=== PATIENT | male | born 1960 | race Caucasian/White ===

== ENCOUNTER 2021-03-11 10:12 | Emergency (ER) | payer OTHER, SELFPAY ==
--- NOTE | ~2021-03-11 | XR_ITS ---
EXAMINATION: XR CHEST CLINICAL INFORMATION: Chest pain COMPARISON: None TECHNIQUE: Frontal view of the chest was obtained. FINDINGS: The cardiomediastinal silhouette is normal. Low lung volumes. Mild bronchial wall thickening. No dense consolidation, pleural effusion or pneumothorax. XR/XR chest 1V IMPRESSION: Mild bronchial wall thickening suggesting small airways disease. No consolidation.
--- NOTE | 2021-03-11 10:16 | ECG_ITS ---
Test Reason : chest pain Blood Pressure : / mmHG Vent. Rate : 069 BPM Atrial Rate : 069 BPM P-R Int : 150 ms QRS Dur : 120 ms QT Int : 416 ms P-R-T Axes : 051 060 017 degrees QTc Int : 445 ms Normal sinus rhythm Possible Left atrial enlargement Right bundle branch block ST elevation consider anterior injury or acute infarct ACUTE [place] / STEMI Abnormal ECG No previous ECGs available Referred By: Generic ED Physician Electronically Signed By:
[2021-03-11 10:42] VITALS: BP 128/78; PULSE 78; RESP 16; TEMP 36.1; O2SAT 99; BMI 26.2
--- NOTE | 2021-03-11 10:43 | ED.CHESTPAIN ---
HPI - Chest Pain General Chief Complaint: Chest Pain Stated Complaint: chest pain Time Seen by Provider: 03/11/21 10:40 Source: patient Mode of arrival: ambulatory Limitations: no limitations History of Present Illness HPI narrative: 60-year-old male was rushed to room 22 for possible STEMI. 60-year-old male was exercising this morning at 06:20 when he started to have mid chest pain/epigastric pain while exercising, describes the pain as heaviness on his chest, lasted for about 15-20 seconds, the pain disappeared, patient called PCP who advised him to come to the emergency department for further evaluation patient has no pain now, initial EKG showed artifact that was picked by the machine as an acute MS. Repeat EKG after shaving patient's chest hair shows no STEMI. Patient decline lower extremity swelling or tenderness, patient had a history of PE 3 years ago that required Eliquis treatment patient is of Eliquis now. Patient exercise regularly sometimes gets epigastric pain or indigestion with exertion. Related Data Allergies Allergy/AdvReac Type Severity Reaction Status Date / Time No Known Allergies Allergy Verified 03/11/21 10:41 Review of Systems Review of Systems: All other systems are reviewed and are negative Constitutional: Reports as per HPI and Reports no additional constitutional complaints Eyes: Reports as per HPI and Reports no additional eye complaints Reports system reviewed and no additional complaints, except as documented Cardiovascular: Reports as per HPI and Reports no additional cardiovascular complaints Respiratory: Reports as per HPI and Reports no additional respiratory complaints Gastrointestinal: Reports as per HPI and Reports no additional gastrointestinal complaints Genitourinary: Reports no additional female genitourinary complaints Musculoskeletal: Reports no additional musculoskeletal complaints Skin/Breast: Reports system reviewed and no additional complaints, except as docu Psychiatric: Reports no additional psychiatric complaints Endocrine: Reports no additional endocrine complaints Hematologic/Lymphatic: Reports no additional hematologic/lymphatic complaints Allergic/Immunologic: Reports no additional allergic/immunologic complaints Reports system reviewed and no additional complaints, except as documented and Reports Abnormal speech present [facility] Past Medical History Medical History High cholesterol Pulmonary emboli Surgical History History of ankle surgery Social History Social History Advance Directives: No Advance Directives Information Provided: No Physical Exam Vital Signs: Vital Signs: Last Vital Signs Temp 97.7 F 03/11/21 12:00 Pulse 63 03/11/21 12:00 Resp 18 03/11/21 12:00 BP 118/88 03/11/21 12:00 Pulse Ox 99 03/11/21 12:00 BMI result Body Mass Index 26.2 Vital signs have been reviewed as appeared to be correct. Blood pressure normal. Heart rate normal. Respiration rate normal. Temperature normal. Oxygen saturation normal. Appearance: Alert. Oriented X3. No acute distress. Head: Normal external exam. Normocephalic. Atraumatic. No Murray signs noted. No raccoon eyes noted Eyes: PERRLA. EOMI. Conjunctiva and sclera normal. Eyelids normal. ENT: TM's Normal. Pharynx normal. Uvula midline. Moist mucous membranes. No trismus noted. No drooling noted. No muffled voice noted. Neck: Normal inspection. Neck supple. FROM. No adenopathy. Thyroid Normal. No meningeal signs. No neck mass noted. CVS: Normal heart rate and rhythm. Heart sound normal. No murmurs noted. Pulses normal throughout. Respiratory: No respiratory distress. Painless inspiration. Breath sounds normal. No wheezes/rales/rhonchi noted. Chest nontender. No accessory muscle usage noted or decreased air movement noted. Abdomen: Soft and nontender. Bowel sounds normal in all 4 quadrants. No distention noted. No organomegaly noted. No visible injury noted. Back: No CVA tenderness. Full range of motion noted. Skin: Skin warm and dry. Normal skin color. Normal skin turgor. No rashes/lesions/lacerations noted. Extremities: No lower extremity edema. Extremities exhibit normal range of motion. Extremities nontender. Neuro: Oriented X 3. Cranial nerve exam: II-XII are grossly intact No motor deficit. No sensory deficit. Reflexes normal. Course Course Course Narrative: Assessment and plan. 60-year-old male came in for evaluation after exertional chest pain while he was exercising this morning, artifact EKG was read by the machine as STEMI, repeating EKG showed no STEMI patient remained chest pain-free, patient had a D-dimer negative with no lower extremity swelling or pain and no risk for PE or DVT. Negative troponin with 3 hours apart. MDM - Chest Pain Medical Records Data Attestation: I reviewed the patient's medical records. Lab Data Attestation: I reviewed the patient's lab results. Result diagrams: 03/11/21 10:49 03/11/21 10:49 Labs: Lab Results 03/11/21 03/11/21 03/11/21 Range/Units 10:49 10:49 10:49 WBC 8.0 (4.8-10.8) X10*3/uL RBC 5.46 (4.60-5.80) X10*6/uL Hgb 16.3 (14.0-18.0) g/dl Hct 48.4 (42.0-52.0) % MCV 88.6 (80.0-98.0) fL MCH 29.9 (27.0-33.0) pg MCHC 33.7 (31.0-36.0) g/dl RDW 12.8 (11.0-16.0) % Plt Count 209 (160-400) X10*3/uL MPV 10.8 (9.4-12.4) fL Immature Gran % (Auto) 0.3 (0.0-0.4) % Neut % (Auto) 49.9 (45-73) % Lymph % (Auto) 36.5 (20-40) % [place] % (Auto) 11.1 H (2-11) % Eos % (Auto) 1.8 (0-4) % Baso % (Auto) 0.4 (0-2) % Lymph # (Auto) 2.9 (1.2-4.9) X10*3/uL [place] # (Auto) 0.9 (0.1-1.2) X10*3/uL Eos # (Auto) 0.1 (0.0-0.4) X10*3/uL Baso # (Auto) 0.0 (0.0-0.2) X10*3/uL Abs Immat Gran (auto) 0.02 (0.00-0.03) X10*3/uL Absolute Neuts (auto) 4.0 (2.0-8.3) x10*3/uL Absolute Nucleated RBC 0.000 (0.0-0.012) X10*3/uL Nucleated RBC % (auto) 0.0 (0.0-0.2) /100WBC D-Dimer High Sensitivty < 150 NG/ML Sodium 138 (135-145) mmol/L Potassium 4.5 (3.3-5.1) mmol/L Chloride 102 (96-108) mmol/L Carbon Dioxide 29 (22-29) mmol/L Anion Gap 12 (12-20) BUN 16 (9-16) mg/dL Creatinine 0.93 (0.5-1.4) mg/dL Estim Creat Clear Calc 100.9 Estimated GFR > 60 Random Glucose 111 (60-115) mg/dL Calcium 10.2 (8.4-10.2) mg/dL Total Bilirubin 0.9 (0.0-1.0) mg/dL Direct Bilirubin 0.3 (0.0-0.5) mg/dL AST 30 (5-37) U/L ALT 26 (0-40) U/L Alkaline Phosphatase 59 (39-117) U/L Troponin I High Sens (<3.5-35.0) ng/L B-Natriuretic Peptide (<100) pg/mL Total Protein 7.7 (6.5-8.0) g/dL Albumin 4.5 (3.5-5.0) g/dL Lipase 30 (8-78) U/L 03/11/21 03/11/21 Range/Units 10:49 14:13 WBC (4.8-10.8) X10*3/uL RBC (4.60-5.80) X10*6/uL Hgb (14.0-18.0) g/dl Hct (42.0-52.0) % MCV (80.0-98.0) fL MCH (27.0-33.0) pg MCHC (31.0-36.0) g/dl RDW (11.0-16.0) % Plt Count (160-400) X10*3/uL MPV (9.4-12.4) fL Immature Gran % (Auto) (0.0-0.4) % Neut % (Auto) (45-73) % Lymph % (Auto) (20-40) % [place] % (Auto) (2-11) % Eos % (Auto) (0-4) % Baso % (Auto) (0-2) % Lymph # (Auto) (1.2-4.9) X10*3/uL [place] # (Auto) (0.1-1.2) X10*3/uL Eos # (Auto) (0.0-0.4) X10*3/uL Baso # (Auto) (0.0-0.2) X10*3/uL Abs Immat Gran (auto) (0.00-0.03) X10*3/uL Absolute Neuts (auto) (2.0-8.3) x10*3/uL Absolute Nucleated RBC (0.0-0.012) X10*3/uL Nucleated RBC % (auto) (0.0-0.2) /100WBC D-Dimer High Sensitivty NG/ML Sodium (135-145) mmol/L Potassium (3.3-5.1) mmol/L Chloride (96-108) mmol/L Carbon Dioxide (22-29) mmol/L Anion Gap (12-20) BUN (9-16) mg/dL Creatinine (0.5-1.4) mg/dL Estim Creat Clear Calc Estimated GFR Random Glucose (60-115) mg/dL Calcium (8.4-10.2) mg/dL Total Bilirubin (0.0-1.0) mg/dL Direct Bilirubin (0.0-0.5) mg/dL AST (5-37) U/L ALT (0-40) U/L Alkaline Phosphatase (39-117) U/L Troponin I High Sens 3.9 4.4 (<3.5-35.0) ng/L B-Natriuretic Peptide 16 (<100) pg/mL Total Protein (6.5-8.0) g/dL Albumin (3.5-5.0) g/dL Lipase (8-78) U/L Imaging Data Chest x-ray: Attestation: I personally reviewed and interpreted this imaging study as follows: Radiologist's impression: Mild bronchial wall thickening suggesting small airways disease. No consolidation. ECG Data ECG #1: Attestation: I personally reviewed and interpreted this ECG as follows: Interpretation: Normal sinus rhythm at 63 beats per minutes, right bundle branch block, normal intervals, no ST-T changes. Discharge Plan Discharge Clinical Impression: Chest pain Patient Disposition: Home, Self-Care Instructions: Chest Pain (ED) Referrals: Mohsen Peguero MD [Physician] - 2 days Winston Mandujano MD [Primary Care Provider] - 2 days
[2021-03-11 10:53] LABS: MANUAL DIFF FLAG NO
[2021-03-11 10:54] LABS: Basophils Percent Auto 0.4 % (0-2); Eosinophils Absolute Auto 0.1 X10*3/uL (0.0-0.4); Eosinophils Percent Auto 1.8 % (0-4); Hematocrit 48.4 % (42.0-52.0); Hemoglobin 16.3 g/dl (14.0-18.0); Imm Gran Abs Auto 0.02 X10*3/uL (0.00-0.03); Imm Gran Pct Auto 0.3 % (0.0-0.4); Lymphocytes Absolute Auto 2.9 X10*3/uL (1.2-4.9); Lymphocytes Percent Auto 36.5 % (20-40); Mean Corpuscular HGB Conc 33.7 g/dl (31.0-36.0); Mean Corpuscular Hemoglobin 29.9 pg (27.0-33.0); Mean Corpuscular Volume 88.6 fL (80.0-98.0); Mean Platelet Volume 10.8 fL (9.4-12.4); Monocytes Absolute Auto 0.9 X10*3/uL (0.1-1.2); Monocytes Percent Auto 11.1 % (2-11); Neutrophils Percent Auto 49.9 % (45-73); Platelet Count 209 X10*3/uL (160-400); Red Blood Count 5.46 X10*6/uL (4.60-5.80); Red Cell Distribution Width 12.8 % (11.0-16.0)
[2021-03-11 11:10] LABS: D Dimer High Sensitivity < 150 NG/ML
[2021-03-11 11:33] LABS: Alanine Aminotransferase 26 U/L (0-40); Albumin Level 4.5 g/dL (3.5-5.0); Alkaline Phosphatase 59 U/L (39-117); Anion Gap 12 (12-20); Aspartate Amino Transferase 30 U/L (5-37); Bilirubin Direct 0.3 mg/dL (0.0-0.5); Bilirubin Total 0.9 mg/dL (0.0-1.0); Blood Urea Nitrogen 16 mg/dL (9-16); Calcium 10.2 mg/dL (8.4-10.2); Carbon Dioxide 29 mmol/L (22-29); Chloride 102 mmol/L (96-108); Creatinine Clr Calc Pharmacy 100.9; Estimated Glomerular Filt Rate > 60; Glucose Random 111 mg/dL (60-115); Lipase 30 U/L (8-78); Potassium 4.5 mmol/L (3.3-5.1); Sodium 138 mmol/L (135-145); Total Protein 7.7 g/dL (6.5-8.0)
[2021-03-11 12:00] VITALS: BP 118/88; PULSE 63; RESP 18; TEMP 36.5; O2SAT 99
--- NOTE | 2021-03-11 12:14 | PC.NURSE ---
patient a&ox3, monitor tech nsr 60s, vss, pt has no c/o pain or discomfort, will continue to monitor.
--- NOTE | 2021-03-11 12:33 | PC.NURSE ---
called lab about pending trop and bnp, they stated they are working on it.
[2021-03-11 12:41] LABS: B Type Natriuretic Peptide 16 pg/mL (<100); Troponin-I High Sensitivity 3.9 ng/L (<3.5-35.0)
--- NOTE | 2021-03-11 15:28 | PC.NURSE ---
pt. well appearing. denies CP at this time. No SOB. skin color appropriate for ethnicity. LS CTA. no peripheral edema. ambulatory with steady gait
[2021-03-11 15:39] LABS: Troponin-I High Sensitivity 4.4 ng/L (<3.5-35.0)
[2021-03-11 16:47] VITALS: BP 122/65; PULSE 78; RESP 18; O2SAT 98
== END 2021-03-11 16:49 | disposition home or self-care (01) ==
PROVIDERS: Emergency Provider Emergency Medicine; PCP Internal Medicine Endocrinology, Diabetes & Metabolism
DX: R07.9 Chest pain, unspecified (principal); E78.5 Hyperlipidemia, unspecified; Z86.711 Personal history of pulmonary embolism; Z79.01 Long term (current) use of anticoagulants
CPT/HCPCS: 36415; 71045; 80048; 80076; 83690; 83880; 84484; 85025; 85379; 93005; 99283; 99284

== ENCOUNTER 2023-11-02 16:42 | Outpatient (REF) | payer OTHER, SELFPAY ==
--- NOTE | ~2023-11-02 | XR_ITS ---
EXAMINATION: XR ANKLE, RIGHT CLINICAL INFORMATION: Rule out fracture, pain. COMPARISON: None available. TECHNIQUE: AP, lateral, and mortise views of the right ankle. FINDINGS: Prominent dorsal and plantar calcaneal spurs. Multiple ossicles adjacent to the medial malleolus of indeterminate age and etiology, possibly related to prior trauma of indeterminate age. Alignment maintained. XR/XR ankle RT min 3V IMPRESSION: 1. Multiple ossicles adjacent to the medial malleolus of indeterminate age and etiology, possibly related to prior trauma of indeterminate age. 2. Prominent dorsal and plantar calcaneal spurs. Electronically signed by: Yvonne Cain MD 11/09/2023 07:35 AM EDT
== END 2023-11-02 16:43 | disposition home or self-care (01) ==
LOC: HO.XRAY 16:42
PROVIDERS: PCP Internal Medicine Endocrinology, Diabetes & Metabolism; Visit Provider Nurse Practitioner Family
DX: M25.571 Pain in right ankle and joints of right foot (principal)
CPT/HCPCS: 73610

== ENCOUNTER 2024-06-11 18:58 | Emergency (ER) | payer OTHER, SELFPAY ==
--- NOTE | ~2024-06-11 | CT_ITS ---
CLINICAL HISTORY: face strike on window, nasal deformity CT maxillofacial without contrast Comparison: None Findings: Acute nondisplaced fracture of the right nasal bone. Mild buckling and nondisplaced fracture of the nasal septum. Moderate surrounding soft tissue swelling. Hyperdense material within the nasal cavity, nasopharynx likely represent hemorrhage. Temporomandibular joints are intact. Paranasal sinuses and mastoid air cells clear. Orbital contents within normal limits. Visualized intracranial contents are within normal limits. No foreign bodies. IMPRESSION: Acute nondisplaced fracture of the right nasal bone and nasal septum with moderate surrounding soft tissue swelling. Hyperdense material within the nasal cavity and nasopharynx likely represent hemorrhage/hematoma. This document has been electronically signed by: Winston Rodriges MD on 06/11/2024 22:11:49
--- NOTE | ~2024-06-11 | CT_ITS ---
CLINICAL HISTORY: fall w head strike CT head without contrast Comparison: None Findings: No intra-axial mass, midline shift, hydrocephalus, or acute hemorrhage. No significant atrophy-like change or white matter disease. There is no sinus or mastoid fluid. The orbits are unremarkable. IMPRESSION: 1. No acute intracranial findings specifically, no acute intracranial hemorrhage. This document has been electronically signed by: Winston Rodriges MD on 06/11/2024 22:13:00
[2024-06-11 19:04] VITALS: BP 151/81; PULSE 69; RESP 16; TEMP 36.3; O2SAT 96; BMI 27.5
--- NOTE | 2024-06-11 19:07 | ED.FALL ---
HPI - Fall General Chief Complaint: Head Injury Stated Complaint: ? broken nose Time Seen by Provider: 06/12/24 00:46 Source: patient and family () Mode of arrival: ambulatory Limitations: no limitations History of Present Illness ED Provider: Dr. Sajan Miramontes HPI Narrative: 63-year-old male with a history pre diabetes, hyperlipidemia, pulmonary embolism on aspirin prophylaxis who presents emergency department for evaluation of head injury and facial injury that occurred prior to coming to the emergency department. Patient states that he walked into a glass wall that he thought was an open door. The patient struck his nose and forehead on the glass. He denied loss of consciousness. He did developed a headache to the frontal area of his scalp, pain in his nose and bleeding from his nostrils. The patient is on aspirin 162 mg daily. On initial presentation the patient did complain of dizziness. At the time my evaluation he states that the dizziness resolved but he was having a 5 out 10 frontal headache and 5/10 pain in his nose. The nasal bleeding resolved by the time I evaluated him. He denied nausea, vomiting, weakness, numbness or tingling was extremities. Patient states his tetanus status is up today Related Data Allergies Allergy/AdvReac Type Severity Reaction Status Date / Time No Known Allergies Allergy Verified 06/11/24 19:10 Review of Systems Review of Systems: Yes all other systems are reviewed and are negative PMFSH Past Medical History Medical History High cholesterol Pulmonary emboli Surgical History History of ankle surgery Social History Social History Smoked in Last 30 Days: No Use of substances other than those prescribed or required for medical reasons: No Advance Directives: No Advance Directives Information Provided: No Do you have a plan to hurt others: No Plan Physical Exam Vital Signs: Vital Signs: Last Vital Signs Temp 99.1 F 06/12/24 02:06 Pulse 61 06/12/24 02:06 Resp 16 06/12/24 02:06 BP 138/76 06/12/24 02:06 Pulse Ox 97 06/12/24 02:06 O2 Del Method Room Air 06/12/24 02:06 BMI result Body Mass Index 27.5 Vital signs were normal Exam: General: Awake, alert in no distress Head: Normocephalic, tenderness with palpation over the frontal scalp area with no hematoma or ecchymosis noted. Patient has no tenderness with palpation over his facial bones over around his orbits. The patient does have tenderness with palpation of the bones of the bridge of his nose right greater than left. No significant facial swelling or ecchymosis noted. EENT: PERRL, Lids normal, sclera normal, conjunctiva normal, normal , ears normal, throat without erythema or exudates Nose : Slight deformity noted on the right nasal bone area with tenderness with palpation of this area with no ecchymosis. There is a very small punctate abrasion/laceration to over right proximal area of the nasal bridge. His all septum is midline, patient is able to breathe out of each nostril. There is some dark dried blood and both nostrils. Neck: Supple, no adenopathy Lung: breath sounds symmetric, no wheezing, rales or rhonchi Chest: symmetric movement, nontender Heart: regular rate and rhythm, normal S1, S2 no murmurs or rubs Abdomen: soft, non-tender, nondistended, normal bowel sounds Back: no vertebral tenderness, no CVAT Extremities: no deformities, moves all extremities symmetrically Neuro: Awake, alert, oriented, normal speech, cranial nerves intact, moves all extremities symmetrically Psych: Pleasant, cooperative Course Course Course Narrative: This is a Rapid Medical Examination (RME) performed by Stanley Rojo PA-C in triage. Full HPI, ROS, assessment and treatment plan per primary provider in the Main ED. 06/11/[id number] JEAN Farrell Hx: 63 yo male here for eval of facial/ nasal pain s/p walking into a glass window/door. fell backwards after, states his head grazed the ground. no LOC. no thinners. admits to nasal deformity/ nose bleed. reports headache. PE/vitals: exam nonfocal. subtle deformity to nose, bleeding controlled, patient not tolerating exam - possible septal hematoma will order imaging. Plan: imaging Medications Administered Discontinued Medications Generic Name Dose Route Start Last Admin Trade Name Freq PRN Reason Stop Dose Admin Acetaminophen 650 mg 06/12/24 00:43 06/12/24 00:47 Acetaminophen 325 Mg Tablet PO 06/12/24 00:44 650 mg ONCE ONE Administration Medical Decision Making Medical Decision Making MDM Narrative: 63-year-old male with a history pre diabetes, hyperlipidemia, pulmonary embolism on aspirin prophylaxis who presents emergency department for evaluation of head injury and facial injury that occurred prior to coming to the emergency department. Patient accidentally twalked into a glass wall that he thought was an open door, striking his forehead and nose on the glass. Patient had no loss of consciousness. He had pain in his forehead, headache, epistaxis from both nares which resolved without treatment. He had no loss of consciousness. Patient is on aspirin 162 mg daily. Vital signs were normal. Exam did reveal tenderness palpation of his forehead, nasal bridge, small, pinpoint abrasion /laceration to right aspect of the nasal bridge, midline nasal septum with dry blood in both nares and no significant facial tenderness or ecchymosis. Tetanus status is up-to-date Differential diagnosis: Includes but is not limited to the nasal fracture, nasal contusion, skull fracture, scalp contusion, intracranial bleed Course: the CT scan of the patient's head revealed no acute fracture or bleed. CT scan of the facial bones and nose revealed no facial bone. The patient did have a nondisplaced fracture of the right nasal bone and a mild buckling of the nasal septum consistent with a nondisplaced fracture. I do not think that the patient has a fracture of his sinuses based on his physical exam and on the CT scan report , therefore the patient was not started on prophylactic antibiotics. patient was advised to take Tylenol for his pain and for pain not relieved by this medication he does have oxycodone that was prescribed for him in the past. Patient was advised to stay on his aspirin since he needs this for PE prophylaxis But advised to avoid NSAIDs. The patient has seen the ENT surgeon,Dr. Tomlinson and the past and I advised him to contact this doctor's office to try to make a follow-up appointment within 1 week. He was also given the name of our ENT physician, Dr. Albert as a alternative option. Patient was given printed and verbal instructions and discharged home. Admission/Observation Consideration of admission/observation: Escalation of care including admission/observation considered ( Yes) Radiology Impression Discussion of test interpretation with radiology: I have reviewed the radiologist's reading. Radiologist Impression: CT head without contrast Comparison: None Findings: No intra-axial mass, midline shift, hydrocephalus, or acute hemorrhage. No significant atrophy-like change or white matter disease. There is no sinus or mastoid fluid. The orbits are unremarkable. IMPRESSION: 1. No acute intracranial findings specifically, no acute intracranial hemorrhage. This document has been electronically signed by: Winston Rodriges MD on 06/11/2024 22:13:00 CT maxillofacial without contrast Comparison: None Findings: Acute nondisplaced fracture of the right nasal bone. Mild buckling and nondisplaced fracture of the nasal septum. Moderate surrounding soft tissue swelling. Hyperdense material within the nasal cavity, nasopharynx likely represent hemorrhage. Temporomandibular joints are intact. Paranasal sinuses and mastoid air cells clear. Orbital contents within normal limits. Visualized intracranial contents are within normal limits. No foreign bodies. IMPRESSION: Acute nondisplaced fracture of the right nasal bone and nasal septum with moderate surrounding soft tissue swelling. Hyperdense material within the nasal cavity and nasopharynx likely represent hemorrhage/hematoma. This document has been electronically signed by: Winston Rodriges MD on 06/11/2024 22:11:49 Independent Historian Clinical information obtained from an independent historian. History obtained from or confirmed by: Spouse Chronic Conditions Patient?s care impacted by: Diabetes Discharge Plan Discharge Clinical Impression: Closed fracture nasal bone Patient Disposition: Home, Self-Care Instructions: Nasal Fracture (ED) Additional Instructions: The CT scan of your head revealed no broken bones or bleeding in the brain. The CT scan of the facial bones revealed a nondisplaced fracture of the right side of your nose and broken bone of your nasal septum (the bone that separates the to nostrils). The radiologist did not see any other broken bones in your face which is reassuring. Most nasal fracture/broken bones do not need to be operated on but you need follow-up evaluation by an ENT surgeon to get their opinion.. Contact your ENT surgeon, Dr. Tomlinson's office to make a follow-up appointment within 1 week. If he is not able to see you, then try following up with our ENT surgeon, Dr. Albert within 1 week. Take Tylenol (acetaminophen) 500 mg pills, 2 pills every 6 hours as needed for pain or fever. For pain not relieved by Tylenol you can take your own oxycodone as prescribed by your provider. Do not blow your nose. If you start to bleed from your nose, apply the nose clip to the soft part of your nose and leave it on for 20 minutes. If the bleeding does not stop after 20 minutes then you can return to our emergency department however, we do not have ENT surgeon on-call in you may be better off going to [facility] or [facility] where they have ENT surgeon on-call. Do not blow your nose for 1 week. Apply ice for 15 minutes to your nose 4 to 6 times a day for the next 1-2 days to help reduce the swelling and help reduce the pain Please return to the emergency department if you get fever, chills, headache, swelling of your face, clear fluid leaking from your nose, nausea, vomiting or any other symptoms that are concerning to. Below are the radiology interpretations of your CT scans. You should review these with your doctor. We did upload the images to the [facility] system and we also gave you a disc that your doctor may be able to use in their office to look at the x-rays. CT head without contrast Comparison: None Findings: No intra-axial mass, midline shift, hydrocephalus, or acute hemorrhage. No significant atrophy-like change or white matter disease. There is no sinus or mastoid fluid. The orbits are unremarkable. IMPRESSION: 1. No acute intracranial findings specifically, no acute intracranial hemorrhage. This document has been electronically signed by: Winston Rodriges MD on 06/11/2024 22:13:00 CT maxillofacial without contrast Comparison: None Findings: Acute nondisplaced fracture of the right nasal bone. Mild buckling and nondisplaced fracture of the nasal septum. Moderate surrounding soft tissue swelling. Hyperdense material within the nasal cavity, nasopharynx likely represent hemorrhage. Temporomandibular joints are intact. Paranasal sinuses and mastoid air cells clear. Orbital contents within normal limits. Visualized intracranial contents are within normal limits. No foreign bodies. IMPRESSION: Acute nondisplaced fracture of the right nasal bone and nasal septum with moderate surrounding soft tissue swelling. Hyperdense material within the nasal cavity and nasopharynx likely represent hemorrhage/hematoma. This document has been electronically signed by: Winston Rodriges MD on 06/11/2024 22:11:4 Interventions: ED Discharge Assessment Last Done: 06/12/24 02:06 Discharge Date/Time: 06/12/24 02:07 Print Language: Faroese
--- OUTSIDE RECORDS SUMMARY | 2024-06-11 22:29 | XMS_ITS | Data Portability ---
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 Plan of Treatment Reminders Order Date Submit Date Provider Last Modified By Organization Details Last Modified Time Details Appointments None recorded. Lab None recorded. Referral None recorded. Procedures None recorded. Surgeries None recorded. Imaging electrocard iogram 2015 016 ALVINO In-House Results, For Internal Use Only, Do Not Delete/merge, [id number] 6 12:47:25 exercise stress test with myocardial perfusion scan 2015 016 ALVINO Not available 6 14:46:25 echocardiog braulio 2015 016 [email or web address] In-House Results, For Internal Use Only, Do Not Delete/merge, [id number] 6 14:08:57 Medication Orders None recorded. Patient TargetsNo targets recorded. Patient Instructions Encounter Date Encounter Id Patient Instructions Last Modified By Organization Details Last Modified Time 07/03/2015 [id number] ? {{Continue current medications* Cont inue current medications with the exception of increasing the dose of Continue the current medications with the exception of decreasing the dose of Continue the current medications with the exception of discontinuing Con tinue the current medications with the exception of starting}}. ? {{Aerobic exercise with activities as tolerated* Limit activities until further notice}}. ? {{Low-fat, low cholesterol diet* Low-fat, low cholesterol in addition to a 2 gram salt-restricted diet Increase the fluid intake}}. ? {{Maintain blood pressure at 130/80mmHg or less* Maintain blood pressure at 160/90mmHg or less}}. ? {{Follow-up visit after the tests are completed or prior, if necessary Follow- up visit in 1 week Follow-up visit in 2 weeks Follow-up visit in 3 weeks Follow-up visit in 1 month Follow-up visit in 2 months Follow-up visit in 3 months Follow-up visit in 6 months Follow-up visit in 12 months* Follow-up with us as needed in the future}}. Not available 07/03/2015 14:50:02 Reason for Referral None Reported. Results Created Date Observation Date Name Description Value Unit Range Abnormal Flag Note LastModifiedBy Organization Detail LastModifiedTime 06/02/19 16 elect irma diogr am No observ ation record ed. [email or web address] Not Available 05/2015 12:47:24 06/13/19 16 06/12/2015 exerc isignacia jones s test with myoca rdial perfu bernardo scan No observ ation record ed. [email or web address] Not Available 2015 14:45:12 06/16/19 16 06/12/2015 echoc ardio gram No observ ation record ed. [email or web address] In-House Results For Internal Use Only, Do Not Delete/merge, [id number] 07/03/2015 14:45:12 Result Notes None recorded. Problems Name Problem SNOMED Code Status Onset Date Resolution Date Notes Provider Name and Address Organization Details Recorded Time Chest pain 35336768 Active Tere Kauffman MD [address], [place], [address], [facility] 6 14:50:02 Diabetes mellitus 73014778 Active borderline Tere Kauffman MD [address], [place], [address], [facility] 6 14:50:02 Hyperlipid emia 15456095 Active borderline Tere Kauffman MD [address], [place], [address], [facility] 6 14:50:02 Problem Notes None recorded. Procedures Surgical History Date Name Laterality Status Provider Name and Address Organization Details Recorded Time 5 Z-Other completed [facility] 07/03/2015 13:55:09 2 Back Surgery completed [facility] 07/03/2015 13:55:09 Imaging Results Imaging Date Name Status LastModified by Organization Details LastModified Time 06/02/2015 electrocardiogram completed [email or web address] Inform ation not available 06/02/2015 12:47:24 06/12/2015 exercise stress test with myocardial perfusion scan completed [email or web address] Information not available 07/03/2015 14:45:12 06/12/2015 echocardiogram completed [email or web address] In-House Results For Internal Use Only, Do Not Delete/merge, [id number] 07/03/2015 14:45:12 Procedure Notes None recorded. Medical Equipment None Reported. Allergies No known drug allergies Medications Name Sig Start Date Stop Date Status Note LastModified by Organization Details LastModified Time hydrocodone 5 mg-acetaminop hen 325 mg tablet active Not Available Not Available Not Available penicillin V potassium 500 mg tablet active Not Available Not Available No t Available simvastatin 5 mg tablet Take 1 tablet every day by oral route for 90 days. active Not Available Not Available No t Available diclofenac sodium 75 mg tablet,delaye d release active Not Available Not Available No t Available montelukast 10 mg tablet Take 1 tablet every day by oral route for 90 days. active Not Available Not Available No t Available mupirocin 2 % topical ointment active Not Available Not Available Not Available Aspir-81 mg tablet,delaye d release Take 1 tablet every day by oral route. active Not Available Not Available No t Available Vitals Date Recorded Body weight Body mass index (BMI) Body height Heart rate Oxygen saturation Oxygen saturation in Arterial blood by Pulse oximetry Systolic blood pressure Diastolic blood pressure Systolic blood pressure Diastolic blood pressure Provider Name and Address Organization Details Last Updated DateTime 6 14156.8 0533 g 26.1 kg/m2 190.5 cm 92 /min 98 % 98 % 114 mm[Hg] 86 mm[Hg] 116 mm[Hg] 88 mm[Hg] Kim Corey [facility] 6 12:20:07 Date Recorded Body height Body weight Oxygen saturation Oxygen saturation in Arterial blood by Pulse oximetry Body mass index (BMI) Heart rate Systolic blood pressure Diastolic blood pressure Systolic blood pressure Diastolic blood pressure Provider Name and Address Organization Details Last Updated DateTime 6 190.5 cm 63877.3 5955 g 98 % 98 % 26.9 kg/m2 68 /min 118 mm[Hg] 82 mm[Hg] 116 mm[Hg] 78 mm[Hg] Patricia Sheikh [facility] 6 13:55:09 Social History Question Answer Notes LastModified by Organizat ion Details LastModified Time Tobacco Smoking Status Never Smoker Kim Corey [facility] 06/02/2015 12:20:08 What Is Your Level Of Alcohol Consumption? Moderate 3 To 4 Beers Per Week Information not available 06/02/2015 What Is Your Level Of Caffeine Consumption? Moderate 6 Cups Of Coffee Daily Information not available 06/02/2015 Are You A Restorationism? No Information not available 06/02/2015 Are You Willing To Accept Blood Products? Yes Information not available 06/02/2015 Illicit Drugs No Information not available 06/02/2015 Marital Status Information not available 06/02/2015 Sex: Unknown Functional Status None recorded. Mental Status None recorded. Family History Relationship Description Onset Age of this Age Resolved Age Notes LastModified by Organization Details LastModified Time Mother Heart disease living [email or web address] Not available 2015 14:43:49 Father Deep venous thrombosis living [email or web address] Not available 07/02 14:43:49 Medical History Condition Response Diabetes Mellitus, Type 2 Y Hyperlipidemia Y Past Encounters Encounter ID Performer Location Encounter Start Date Encounter Closed Date Diagnosis/Indication Diagnosis SNOMED-CT Code Diagnosis ICD10 Code Diagnosis Note [id number] Ellyn Marcelino Main Office [address] [address] 06/02/2015 11:48:09 06/02/2015 12:43:44 Chest pain 91732874 R07.9 Intermedia te coronary risk -start low dose aspirin 81mg daily. - refrain from exercise until testing complete. - follow up post testing. Hyperlipidemia 55611620 E78.5 reviewed diet Diabetes mellitus 656791 09 E11.9 [id number] Tere Kauffman MD Main Office [address] [place] [id number] 07/03/2015 13:27:27 07/03/2015 14:56:01 Chest pain 18762283 R07.9 Noncardiac based on results. Resolved. Diabetes mellitus 374021 09 E11.9 Hyperlipidemia 99797027 E78.2 Health Concerns Section Related Observation LastModified by Organization Detai ls LastModified Time None Recorded Concern Status LastModified by Organization Details LastModified Time None Recorded Advance Directives Directive None Recorded Payers Encounter Date Sequence Insurance Name Policy Number Policy Keith Covered Member ID Keith Member ID Guarantor Name 06/02/2015 1 [facility] [id number] [facility] [id number] [facility] 07/03/2015 1 [facility] [id number] [facility] [id number] [facility] Notes Date Note Type Note Provider Name and Address Organization Details Recorded Time 06/02/2015 text/html This is a 54 yo male seen for chest pain runs regularly about 3-4 days a week about 3-4miles and bikes. Reports chest pain moderate intensity centrral chest and radiation to left and to the arm while running resolved with resting. has been exeperiencing these symptoms for the past few episodes. No associated dyspnea, dizziness or syncope. No palpitaitons. Ellyn Marcelino [facility] [place] [facility] 06/02/2015 12:47:55 07/03/2015 text/html 06/02/2015: This i s a 54 yo male seen for chest pain runs regularly about 3-4 days a week about 3-4miles and bikes. Reports chest pain moderate intensity centrral chest and radiation to left and to the arm while running resolved with resting. has been exeperiencing these symptoms for the past few episodes. No associated dyspnea, dizziness or syncope. No palpitaitons. 07/03/2015: For the above, he did a treadmill nuclear stress test that was negative for ischemia. His echocardiogram showed normal LV function, EF >70% with no significant valvular disease. He has been doing well since the above visit [place] [address], [address], [facility] 07/03/2015 14:50:10
[2024-06-11 22:38] VITALS: BP 149/77; PULSE 64; RESP 16; O2SAT 98
[2024-06-12 00:22] VITALS: BP 138/76; PULSE 61; RESP 16; TEMP 37.3; O2SAT 97
[2024-06-12] MEDS: Acetaminophen 325 MG TABLET 650 MG PO (00:47)
[2024-06-12 02:06] VITALS: BP 138/76; PULSE 61; RESP 16; TEMP 37.3; O2SAT 97
== END 2024-06-12 02:07 | disposition home or self-care (01) ==
PROVIDERS: Emergency Provider Emergency Medicine Emergency Medical Services; PCP Internal Medicine Endocrinology, Diabetes & Metabolism
DX: S02.2XXA Fracture of nasal bones, initial encounter for closed fracture (principal); R51.9 Headache, unspecified; Y29.XXXA Contact with blunt object, undetermined intent, initial encounter; Y93.9 Activity, unspecified; Y92.9 Unspecified place or not applicable; Y99.8 Other external cause status
CPT/HCPCS: 70450; 70486; 99284

== ENCOUNTER → 2024-06-11 19:07 | Outpatient (BNV) | payer OTHER, SELFPAY | PROVIDERS: PCP Internal Medicine Endocrinology, Diabetes & Metabolism; Visit Provider Student in an Organized Health Care Education/Training Program | DX: S02.2XXA Fracture of nasal bones, initial encounter for closed fracture (principal); S00.93XA Contusion of unspecified part of head, initial encounter | CPT/HCPCS: 70450; 70486 ==